=== PATIENT | male | born 2005 | race Two or more races ===

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

== ENCOUNTER 2024-06-28 02:44 | Emergency (ER) | payer OTHER ==
[~2024-06-28] VITALS: Ht 175.3 cm; Wt 72.6 kg
[2024-06-28] MEDS ORDERED: ACETAMINOPHEN 500 MG GEL..CAP PO STA (04:02)
== END 2024-06-28 05:00 | disposition home or self-care (01) ==
LOC: ER 02:45
DX: Z00.00 Encounter for general adult medical examination without abnormal findings (principal); V49.9XXA Car occupant (driver) (passenger) injured in unspecified traffic accident, initial encounter; Y93.89 Activity, other specified; Y92.89 Other specified places as the place of occurrence of the external cause; Y99.8 Other external cause status